=== PATIENT | male | born 1950 | race Hispanic/Latino ===

== ENCOUNTER → 2017-05-17 | Day surgery (SDC) | payer OTHER ==
[2017-05-11 10:48] LABS: BASOPHILS % 0.2 % (0.0-1.0); EOSINOPHILS # (AUTO) 0.1 (0.0-0.4); EOSINOPHILS % 0.5 % (0.0-6.0); HEMATOCRIT 42.3 % (38.2-49.6); HEMOGLOBIN 14.6 g/dL (14.0-18.0); LYMPHOCYTES # (AUTO) 2.2 (1.0-3.2); LYMPHOCYTES % 17.8 % (18.0-39.1); MEAN CORPUSCULAR HGB CONC 34.5 g/dL (31-35); MEAN CORPUSCULAR VOLUME 95.7 fL (81-99); MONOCYTES % 8.3 % (4.4-11.3); NEUTROPHILS # (AUTO) 8.8 (2.1-6.9); NEUTROPHILS % 72.8 % (38.7-80.0); PLATELET COUNT 120 x10e3/uL (140-360); RED BLOOD COUNT 4.42 x10e6/uL (4.3-5.7); RED CELL DISTRIBUTION WIDTH 13.1 % (11.7-14.4)
--- NOTE | 2017-05-11 11:14 | Diagnostic Imaging Report ---
PROCEDURE: Frontal and lateral views of the chest. COMPARISON: Chest radiograph 09/18/2014 INDICATIONS: PREOPERATIVE CHEST XRAY FOR TRIGGER FINGER SURGERY FINDINGS: Lines/tubes: None. Lungs: The lungs are well inflated and clear. There is no evidence of pneumonia or pulmonary edema. Pleura: There is no pleural effusion or pneumothorax. Heart and mediastinum: The heart and the mediastinum are normal. Bones: No acute bony abnormality. Cervical fusion hardware noted. IMPRESSION: No acute cardiopulmonary disease. Dictated by: Lewis Patel M.D. on 05/11/2017 at 11:14 Electronically approved by: Lewis Patel M.D. on 05/11/2017 at 11:14
[~2017-05-17] MED LIST: ALEVE220 M1 PO; AREDS PO; ASPIRIN81 MG PO; BUPIVACAINE HCL 0.5% 10ML MPF VIAL INJ ONE; CEFAZOLIN SOD 1 GM VIAL ONE; CIPRO500 MG PO; CLONAZEPAM0.5 MG PO; CRESTOR10 MG PO; DEXAMETHASONE SOD PHOS INJ 4 MG/ML VIAL ONE; FAMOTIDINE20 MG PO; FENTANYL CITRATE/PF 100MCG/2 ML INJ ONE; FLAGYL250 MG PO; GABAPENTIN100 MG; GLUCOSAMINE1000 MG PO; IBUPROFEN; LIDOCAINE HCL 2% LOCAL INJ 5 ML SDV VIAL INJ ONE; LOSARTAN POTASS25 MG PO; MIDAZOLAM HCL 2 MG/2 ML VIAL ONE; MUPIROCIN 2% OINT 22 GM TUBE ONE; ONDANSETRON HCL INJ 2 MG/ML VIAL ONE; PRAVASTATIN SOD20 MG PO; PROPOFOL IV EMULSION 10 MG/ML 20 ML VIAL ONE; SEVOFLURANE INHAL SOLN 250 ML PEN BTL ONE; TYLENOL WITH C1 EACH PO; VENLAFAXINE HCL75 MG PO; ZOFRAN ODT4 MG PO
--- OUTSIDE RECORDS SUMMARY | 2017-05-17 07:10 | XMS REPORT | Summary of Care ---
Author Author Veronica Forman M.A. Unknown Address [facility] Phone Unavailable Care Team Providers Care Power Truck Driver Name Role Phone MYCHAL Wilks, TYESHA Unavailable Unavailable RANDY Montes De Oca, ROSAMARIA Unavailable Unavailable Veronica Forman M.A. Unavailable Unavailable HERNAN Alvarez, YARELIS Unavailable Unavailable GROVER Alvarez, KWAME Unavailable Unavailable TOSHIA Wilks, ELBA Unavailable Unavailable JACKY MAGAÑA [place], MELVIN BATRES Unavailable Unavailable JACKY Alvarez, MELVIN Unavailable Unavailable Katherin MAGAÑA, Prosper Unavailable Unavailable RHIANNA MAGAÑA [place], EMIGDIO MÉNDEZ Unavailable Unavailable Ascencion MAGAÑA, Cornelio Unavailable Unavailable Unavailable Unavailable Functional Status Name Dates Details Functional status health issues are not documented Status: Name Dates Details Cognitive status health issues are not documented Status: Problems Name Dates Details Benign localized hyperplasia of prostate (600.20, N40.0) Status: Active Macular degeneration (362.50, H35.30) Status: Active Screening for colon cancer (V76.51, Z12.11) Status: Active CORAL on CPAP (327.23, G47.33) Status: Active Nocturnal leg cramps (327.52, G47.62) Status: Active Osteoarthritis (715.90, M19.90) Status: Active Recent exposure to tuberculosis (V01.1, Z20.1) Status: Active NSAID long-term use (V58.64, Z79.1) Status: Active Rotator cuff syndrome (726.10, M75.100) Status: Active Sciatica, unspecified laterality (724.3, M54.30) Status: Active Multiple joint pain (719.49, M25.50) Status: Active Back muscle spasm (724.8, M62.830) Status: Active Generalized anxiety disorder (300.02, F41.1) Status: Active Reflux pharyngitis (462, J02.9) Status: Active Encounter for mini-mental status examination Status: Active At low risk for fall (V49.89, Z91.81) Status: Active Depression screening (V79.0, Z13.89) Status: Active History of smoking 10-25 pack years (V15.82, Z87.891) Status: Active Ulcer mouth (528.9, K12.1) Status: Active Psychophysiological insomnia (307.42, F51.04) Status: Active Vasomotor rhinitis (477.9, J30.0) Status: Active Peripheral neuropathy (356.9, G62.9) Status: Active Ingrown nail of great toe of left foot (703.0, L60.0) Status: Active Ingrown nail of great toe of right foot (703.0, L60.0) Status: Active Chronic pain of both knees (719.46, M25.561) Status: Active Myalgia (729.1, M79.1) Status: Active Influenza vaccination declined (V64.06, Z28.21) Status: Active Trigger finger (727.03, M65.30) Status: Active Cervicalgia (723.1, M54.2) Status: Active Low back pain (724.2, M54.5) Status: Active Limb pain (729.5, M79.609) Status: Active Vitamin D insufficiency (268.9, E55.9) Status: Active Chronic bilateral low back pain with right-sided sciatica (724.2, M54.41) Status: Active Trigger ring finger of right hand (727.03, M65.341) Status: Active Essential (primary) hypertension (401.9, I10) Status: Active Mixed hyperlipidemia (272.2, E78.2) Status: Active Mitral valve prolapse (424.0, I34.1) Status: Active Dvtrcli of intest, part unsp, 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 Quantity: 90 MYCHAL P.ATYESHA Stoner * Start : 26-Jun-2015 Active Eye-Vites TABS TAKE 2 TABLETS DAILY. (TAKES AREDS 2) * Refills: 0 Active Eylea 2 MG/0.05ML SOLN * Refills: 0 Active Nebulizer Device USE DIRECTED. * Quantity: 1 Refills: 0 PADILLA N.P.ROSAMARIA * Start : 25-Feb-2015 Active Famotidine 40 MG Oral Tablet TAKE ONE (1) TABLET BY MOUTH DAILY DIRECTED. * Quantity: 90 Refills: 1 RANDY N.P.ROSAMARIA * Start : 09-Mar-2016 Active Aspirin 81 MG TABS TAKE 1 TABLET DAILY. * Refills: 0 Active Baclofen 10 MG Oral Tablet TAKE 1 TABLET 3 TIMES DAILY NEEDED FOR MUSCLE SPASMS. * Quantity: 45 Refills: 1 RANDY N.P.ROSAMARIA * Start : 14-Jul-2016 Active Melatonin 3 MG Oral Capsule TAKE 2 CAPSULE DAILY * Refills: 0 Active Diclofenac Sodium 1 % Transdermal Gel APPLY TO UPPER EXTREMITIES, 2 GM OF GEL TO AFFECTED AREA 4 TIMES DAILY. DO NOT APPLY MORE THAN 8 GM DAILY TO ANY ONE AFFECTED JOINT. * Quantity: 4 Refills: 2 YARELIS BECERRA M.D. * Start : 23-Feb-2017 Active 100 GM Tube PreserVision AREDS 2+Multi Vit Oral Capsule * Refills: 0 Active Rosuvastatin Calcium 20 MG Oral Tablet pt stated he only takes 1/2 QD for 10 days out of each month * Refills: 0 Active Ibuprofen 800 MG Oral Tablet 1/2 prn * Refills: 0 Active Hyoscyamine Sulfate 0.125 MG Sublingual Tablet Sublingual PLACE 1 TABLET UNDER THE TONGUE 3 TO 4 TIMES DAILY NEEDED. * Quantity: 12 Refills: 0 KWAME NESS M.D. * Start : 08-Apr-2017 Active Ventolin HFA 108 (90 Base) MCG/ACT Inhalation Aerosol Solution INHALE 1 TO 2 PUFFS BY MOUTH EVERY 4 TO 6 HOURS NEEDED * Quantity: 1 Refills: 0 TOSHIAELBA Lindquist * Start : 14-May-2017 Active 8 GM Inhaler Ventolin HFA 108 (90 Base) MCG/ACT Inhalation Aerosol Solution INHALE 1 TO 2 PUFFS EVERY 4 TO 6 HOURS NEEDED. * Quantity: 1 Refills: 1 ELBA LI * Start : 16-May-2017 Active 18 GM Inhaler Allergies and Adverse Reactions Name Dates Details No Known Allergies (Allergy) Status: Active Past Medical History Name Dates Details History of Abdominal bloating (787.3, R14.0) Status: Resolved History of Acute recurrent frontal sinusitis (461.1, J01.11) Status: Resolved History of Acute recurrent sinusitis (461.9, J01.91) Status: Resolved History of Acute upper back pain (724.5, M54.9) Status: Resolved History of Acute URI (465.9, J06.9) Status: Resolved History of adenomatous polyp of colon (V12.72, Z86.010) Status: Resolved History of Arthralgia of hand, left (719.44, M25.542) Status: Resolved History of Arthralgia of hand, right (719.44, M25.541) Status: Resolved History of Arthritis (V13.4) Status: Resolved History of Arthropathy of both elbows (716.82, M19.021) Status: Resolved History of Back pain, acute (724.5, M54.9) Status: Resolved History of Chronic sinus complaints (786.9, R09.89) Status: Resolved History of cough Status: Resolved History of Diverticula of colon (562.10, K57.30) Status: Resolved History of Effusion of left knee (719.06, M25.462) Status: Resolved History of Foot pain (729.5, M79.673) Status: Resolved History of headache (V13.89, Z87.898) Status: Resolved History of Internal hemorrhoids (455.0, K64.8) Status: Resolved History of Knee pain (719.46, M25.569) Status: Resolved History of Lateral epicondylitis of left elbow (726.32, M77.12) Status: Resolved History of Lateral epicondylitis of right elbow (726.32, M77.11) Status: Resolved History of Medial epicondylitis, left (726.31, M77.02) Status: Resolved History of Medial epicondylitis, right (726.31, M77.01) Status: Resolved History of Muscle spasms of both lower extremities (728.85, M62.838) Status: Resolved History of Need for pneumococcal vaccination (V03.82, Z23) Status: Resolved History of Pain in shoulder (719.41, M25.519) Status: Resolved History of Polyarthralgia (719.49, M25.50) Status: Resolved History of Post-nasal drip (784.91, R09.82) Status: Resolved History of PTSD (post-traumatic stress disorder) (309.81, F43.10) Status: Resolved History of Sinusitis (473.9, J32.9) Status: Resolved History of Ulnar neuropathy at elbow, 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, 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) Status: Resolved History of Ulnar neuropathy at elbow, right (354.2, G56.21) Status: Resolved Procedures Procedure Dates Details [QLH] CBC (INCLUDES DIFF/PLT) Date: 14-May-2017 [N] 2D Echo complete, with Doppler 17120 Date: 06-Apr-2017 History of Cervical Vertebral Fusion Completed History of Laminectomy Lumbar Completed History of Neck Surgery Completed Immunization Name Dates Details Pneumococcal polysaccharide vaccine, 23 valent on: Mar-2013 Prevnar 13 Intramuscular Suspension Lot #: [id number] on: 29-Aug-2015 Family History Name Dates Details Family history of Diabetes (250.00, E11.9) Status: Active Family history of Congestive heart failure (428.0, I50.9) Status: Active Name Dates Details Family history of Diabetes Mellitus (V18.0) Status: Active Family history of Congestive Heart Failure Status: Active Social History Name Dates Details - Status: Name Dates Details Former smoker Vital Signs Date Test Result Details [id number] BP Systolic 126 mm[Hg] Status: Comments: Location: LUE; Position: Sitting BP Diastolic 73 mm[Hg] Status: Comments: Location: LUE; Position: Sitting Height 70 in Status: Weight 210.375 lb Status: Body Mass Index Calculated 30.19 kg/m2 Status: Body Surface Area Calculated 2.13 m2 Status: Temperature 97.8 f Status: Comments: Method: Temporal Heart Rate 81 /min Status: Respiration Rate 16 /min Status: Results Date Description Value Details Results not documented Plan of Care Name Dates Details Planned Observations Planned Goals not documented Planned Encounters Appointment; TYESHA HORTA P.A. On: 27-Jun-2017 9:00 Appointment; JESE WHEELER On: 31-Mar-2018 11:00 Appointment; PROSPER AMAYA M.D. On: 31-Mar-2018 13:00 Interventions Provided Medication Changes* Ventolin HFA 108 (90 Base) MCG/ACT Inhalation Aerosol Solution - Start Instructions Name Dates Details Instructions not documented Encounters Appointment; PILI CASTRO M.D. Encounter Diagnosis: Problem not documented On: 02-Jun-2015 8:20 Appointment; PROSPER AMAYA M.D. Encounter Diagnosis: Problem not documented On: 03-Jun-2015 9:00 Appointment; PROSPER AMAYA M.D. Encounter Diagnosis: Problem not documented On: 13-Jun-2015 12:00 Appointment; ROSAMARIA PADILLA NP Encounter Diagnosis: Problem not documented On: 29-Aug-2015 10:30 Appointment; ROSAMARIA PADILLA NP Encounter Diagnosis: Problem not documented On: 14-Oct-2015 15:15 Appointment; ROSAMARIA PADILLA NP Encounter Diagnosis: Problem not documented On: 13-Nov-2015 17:00 Appointment; ROSAMARIA PADILLA NP Encounter Diagnosis: Problem not documented On: 02-Jan-2016 10:15 Appointment; KYARA ACUÑA M.D. Encounter Diagnosis: Problem not documented On: 09-Jan-2016 9:00 Appointment; Bakari Feng M.D. Encounter Diagnosis: Problem not documented On: 27-Jan-2016 13:15 Appointment; KWABENA CALHOUN NP Encounter Diagnosis: Problem not documented On: 12-Mar-2016 18:45 Appointment; KWABENA CALHOUN NP Encounter Diagnosis: Problem not documented On: 19-Mar-2016 14:00 Appointment; KYARA ACUÑA M.D. Encounter Diagnosis: Problem not documented On: 23-Mar-2016 15:00 Appointment; KWABENA CALHOUN NP Encounter Diagnosis: Problem not documented On: 31-Mar-2016 18:00 Appointment; TYESHA HORTA P.A. Encounter Diagnosis: Problem not documented On: 05-May-2016 9:15 Appointment; PROSPER AMAYA M.D. Encounter Diagnosis: Problem not documented On: 04-Jun-2016 12:40 Appointment; ROSAMARIA PADILLA NP Encounter Diagnosis: Problem not documented On: 14-Jul-2016 16:00 Appointment; ROSAMARIA PADILLA NP Encounter Diagnosis: Problem not documented On: 04-Aug-2016 16:15 Appointment; TYESHA HORTA P.AHerbie Encounter Diagnosis: Problem not documented On: 24-Aug-2016 7:45 Appointment; EMIGDIO MOCTEZUMA M.D. Encounter Diagnosis: Problem not documented On: 01-Sep-2016 14:00 Appointment; EMIGDIO MOCTEZUMA M.D. Encounter Diagnosis: Problem not documented On: 13-Sep-2016 9:00 Appointment; TYESHA HORTA P.A. Encounter Diagnosis: Problem not documented On: 04-Oct-2016 14:00 Appointment; EMIGDIO MOCTEZUMA M.D. Encounter Diagnosis: Problem not documented On: 05-Oct-2016 14:30 Appointment; TYESHA HORTA PHerbieAHerbie Encounter Diagnosis: Problem not documented On: 22-Dec-2016 8:30 Appointment; TYESHA HORTA PHerbieAHerbie Encounter Diagnosis: Problem not documented On: 12-Jan-2017 10:15 Appointment; TYESHA HORTA P.A. Encounter Diagnosis: Problem not documented On: 01-Feb-2017 9:15 Appointment; YARELIS BECERRA M.D. Encounter Diagnosis: Problem not documented On: 23-Feb-2017 13:30 Appointment; KWAME NESS M.D. Encounter Diagnosis: Problem not documented On: 25-Feb-2017 13:30 Appointment; KWABENA CALHOUN NP Encounter Diagnosis: Problem not documented On: 10-Mar-2017 19:00 Appointment; KWABENA CALHOUN NP Encounter Diagnosis: Problem not documented On: 14-Mar-2017 16:00 Appointment; KWABENA CALHOUN NP Encounter Diagnosis: Problem not documented On: 18-Mar-2017 12:00 Appointment; PROSPER AMAAY M.D. Encounter Diagnosis: Problem not documented On: 06-Apr-2017 16:20 Appointment; JESE WHEELER Encounter Diagnosis: Problem not documented On: 08-Apr-2017 10:00 Appointment; PROSPER AMAYA M.D. Encounter Diagnosis: Problem not documented On: 08-Apr-2017 11:00 Appointment; KWAME NESS M.D. Encounter Diagnosis: Problem not documented On: 08-Apr-2017 15:00 Appointment; CORNELIO PASCUAL M.D. Encounter Diagnosis: Problem not documented On: 15-Apr-2017 14:00 Appointment; ELBA POPE P.A. Encounter Diagnosis: Problem not documented On: 14-May-2017 9:30
--- OUTSIDE RECORDS SUMMARY | 2017-05-17 07:10 | XMS REPORT ---
[facility] Address Unknown Phone Unavailable Care Team Providers Care Executive Services Administrator Name Role Phone KELSEY BELTRÁN Unavailable Unavailable MER SANTANA Unavailable Unavailable Problems This patient has no known problems. Allergies, Adverse Reactions, Alerts This patient has no known allergies or adverse reactions. Medications This patient has no known medications. Results Test Description Test Time Test Comments Text Results Atomic Results Result Comments CHEST 2 VIEWS [place] [address] Patient Name: BRITTANY CHAVES MR #: [id number] : 1950 Age/Sex: 67/M Req # : [id number] Adm Physician: Ordered by: KELSEY BELTRÁN MD Report #: [id number] Location: OR Room/Bed: Procedure: [id number] DX/CHEST 2 VIEWS Exam Date: 05/11/17 Exam Time: 1035 REPORT STATUS: Signed PROCEDURE: Frontal and lateral views of the chest. COMPARISON: Chest radiograph 09/18/2014 INDICATIONS: PREOPERATIVE CHEST XRAY FOR TRIGGER FINGER SURGERY FINDINGS: Lines/ tubes: None. Lungs: The lungs are well inflated and clear. There is no evidence of pneumonia or pulmonary edema. Pleura: There is no pleural effusion or pneumothorax. Heart and mediastinum: The heart and the mediastinum are normal. Bones: No acute bony abnormality. Cervical fusion hardware noted. IMPRESSION: No acute cardiopulmonary disease. Dictated by: Lewis Dennis M.D. on 05/11/2017 at 11:14 Electronically approved by: Lewis Dennis M.D. on 05/11/2017 at 11:14 Dictated By: LEWIS DENNIS MD 13 Transcribed By: ALEXEY on 05/11/171113 COPY TO: KELSEY BELTRÁN MD CT ABDOMEN/PELVIS W [place] [address] Patient Name: BRITTANY CHAVES MR #: [id number] : 1950 Age/Sex: 66/M Req #: [id number] Adm Physician: Ordered by: MER SANTANA MD Report #: [id number] Location: ER Room/Bed: Procedure: [id number] CT/CT ABDOMEN/PELVIS W Exam Date: 02/02/17 Exam Time: 926 REPORT STATUS: Signed PROCEDURE: CT ABDOMEN AND PELVIS WITH CONTRAST TECHNIQUE: The abdomen and pelvis were scanned utilizing a multidetector helical scanner from the diaphragm to the lesser trochanter after the IV administration of 100 cc of Isovue 370 and the oral administration of Gastroview water. Coronal and sagittal multiplanar reformations were obtained. COMPARISON: None. INDICATIONS: left lower quadrant pain FINDINGS: LOWER THORAX: Normal. HEPATOBILIARY: No focal hepatic lesions. No biliary ductal dilatation. Multiple hypodensities too small to characterize are present in the liver. Single coarse calcification is present in the right lobe of the liver. SPLEEN: No splenomegaly. PANCREAS: No focal masses or ductal dilatation. ADRENALS: No adrenal nodules. KIDNEYS/URETERS: No hydronephrosis, stones, or solid mass lesions. PELVIC ORGANS/BLADDER: Unremarkable. PERITONEUM / RETROPERITONEUM: No free air or fluid. LYMPH NODES: No lymphadenopathy. VESSELS: Unremarkable. GI TRACT: Multiple diverticuli are present in the descending and sigmoid colon. Short segment of bowel wall thickening with adjacent soft tissue inflammatory change is present in the descending colon, series 2 image 49. No drainable fluid collection. The fluid in the left paracolic gutter. Normal appendix. The stomach and small bowel are normal No distention or wall thickening. BONES AND SOFT TISSUES: Postoperative changes of fusion of L4/L5. Degenerative changes of the lumbar spine. IMPRESSION: Acute diverticulitis of the descending colon, without evidence of perforation, obstruction, or abscess formation. Dictated by: Medardo Ahn M.D. on 10/2016 at 10:03 Electronically approved by: Medardo Ahn M.D. on 2016 at 10:03 Dictated By: MEDARDO AHN MD [id number] Transcribed By: ALEXEY on 02/02/17 1003 COPY TO: MER SANTANA MD
--- NOTE | 2017-05-17 14:40 | Operative Report ---
DATE OF PROCEDURE: May 17, 2017 PREOPERATIVE DIAGNOSIS: Stenosing tenosynovitis of right ring finger. POSTOPERATIVE DIAGNOSIS: Stenosing tenosynovitis of right ring finger. OPERATION PERFORMED: Tenovaginotomy of right ring finger. ANESTHESIA: General. HISTORY: The patient is a 67-year-old male who presents with stenosing tenosynovitis of the right ring finger that is recalcitrant to conservative treatment. The risks, benefits, and alternatives of treatment were discussed with the patient and he/she is prepared to undergo the procedure as outlined. DESCRIPTION OF PROCEDURE: The patient was brought to the operating theater. After the induction of adequate general/regional anesthesia, the patient was prepped and draped in a supine position. A time out was performed by the entire operating room team. An oblique incision was marked out over the A1 jessica of the right ring finger. The upper extremity was exsanguinated, and a tourniquet was inflated to a pressure of 250 mmHg. The incision was made through the skin and subcutaneous tissues. All venous tributaries were controlled with bipolar cautery. The incision was deepened through the palmar tissues. The neurovascular bundles on the radial and ulnar sides of the flexor tendon sheath were identified and retracted away from the flexor tendon sheath and preserved. The A1 jessica of the affected finger was identified and incised longitudinally, taking care to protect and preserve the flexor tendons within the sheath. After the complete length of the jessica had been transected, the tendons were placed in a range of motion. There was noted to be good motion without any locking. The wound was then copiously irrigated with bacteriostatic saline and closed with 5-0 nylon in an interrupted horizontal mattress fashion. A Marcaine field block was performed at the operative site. The tourniquet was deflated. All the fingers pinked up nicely. A sterile bulky conforming bandage was applied to the hand, and the patient was returned to the recovery room in satisfactory condition and was discharged with a postoperative instruction sheet as well as a followup appointment. Job#: [id number] VAS
== END | disposition home or self-care (01) ==
LOC: OR 07:08
PROVIDERS: ATTEND Plastic Surgery
DX: M65.341 Trigger finger, right ring finger (principal); I10 Essential (primary) hypertension; G47.33 Obstructive sleep apnea (adult) (pediatric); K21.9 Gastro-esophageal reflux disease without esophagitis; F32.9 Major depressive disorder, single episode, unspecified; Z01.810 Encounter for preprocedural cardiovascular examination; Z01.812 Encounter for preprocedural laboratory examination; Z01.818 Encounter for other preprocedural examination; Z79.82 Long term (current) use of aspirin
CPT/HCPCS: 26055; 36415; 71046; 85025; 93005; J0690; J1100; J2001; J2250; J2405

== ENCOUNTER 2017-11-08 12:08 | Emergency (ER) | payer OTHER ==
[~2017-11-08] VITALS: Ht 180.3 cm; Wt 95.7 kg
[~2017-11-08 12:08] MED LIST changes: -BUPIVACAINE HCL 0.5% 10ML MPF VIAL INJ ONE; -CEFAZOLIN SOD 1 GM VIAL ONE; -DEXAMETHASONE SOD PHOS INJ 4 MG/ML VIAL ONE; -FENTANYL CITRATE/PF 100MCG/2 ML INJ ONE; -LIDOCAINE HCL 2% LOCAL INJ 5 ML SDV VIAL INJ ONE; -MIDAZOLAM HCL 2 MG/2 ML VIAL ONE; -MUPIROCIN 2% OINT 22 GM TUBE ONE; -ONDANSETRON HCL INJ 2 MG/ML VIAL ONE; -PROPOFOL IV EMULSION 10 MG/ML 20 ML VIAL ONE; -SEVOFLURANE INHAL SOLN 250 ML PEN BTL ONE
[2017-11-08] MEDS ORDERED: SODIUM CHLORIDE 0.9% 1000ML 1,000 ML IV STA (12:39)
[2017-11-08 13:10] LABS: BASOPHILS % 0.5 % (0.0-1.0); EOSINOPHILS # (AUTO) 0.1 (0.0-0.4); HEMATOCRIT 41.8 % (38.2-49.6); HEMOGLOBIN 14.6 g/dL (14.0-18.0); LYMPHOCYTES # (AUTO) 1.4 (1.0-3.2); LYMPHOCYTES % 25.9 % (18.0-39.1); MEAN CORPUSCULAR HEMOGLOBIN 33.3 pg (28-32); MEAN CORPUSCULAR HGB CONC 34.9 g/dL (31-35); MEAN CORPUSCULAR VOLUME 95.2 fL (81-99); MONOCYTES # (AUTO) 0.4 (0.2-0.8); MONOCYTES % 7.7 % (4.4-11.3); NEUTROPHILS # (AUTO) 3.5 (2.1-6.9); NEUTROPHILS % 63.5 % (38.7-80.0); PLATELET COUNT 113 x10e3/uL (140-360); RED BLOOD COUNT 4.39 x10e6/uL (4.3-5.7); RED CELL DISTRIBUTION WIDTH 13.4 % (11.7-14.4)
[2017-11-08 13:18] LABS: BILIRUBIN,URINE NEGATIVE (NEGATIVE); CLARITY,URINE CLEAR (CLEAR); COLOR,URINE YELLOW (YELLOW); KETONES,URINE NEGATIVE (NEGATIVE); LEUKOCYTE ESTERASE ,URINE NEGATIVE (NEGATIVE); NITRITE,URINE NEGATIVE (NEGATIVE); PROTEIN,URINE DIPSTICK NEGATIVE (NEGATIVE); URINE UROBILINOGEN 0.2 mg/dL (0.2 - 1)
[2017-11-08 13:25] LABS: ALANINE AMINOTRANSFERASE 21 IU/L (0-55); ALBUMIN/GLOBULIN RATIO 1.3 (0.8-2.0); ALKALINE PHOSPHATASE 81 IU/L (40-150); ANION GAP 12.2 mmol/L (8-16); BLOOD UREA NITROGEN 15 mg/dL (7-26); BUN/CREATININE RATIO 15 (6-25); CALCIUM 9.2 mg/dL (8.4-10.2); CARBON DIOXIDE 26 mmol/L (22-29); CHLORIDE 104 mmol/L (98-107); CREATININE, SERUM 1.02 mg/dL (0.72-1.25); EST GLOMERULAR FILTRATION RATE > 60 ML/MIN (60-); GLUCOSE 93 mg/dL (74-118); POTASSIUM 4.2 mmol/L (3.5-5.1); SODIUM 138 mmol/L (136-145)
--- NOTE | 2017-11-08 13:40 | Diagnostic Imaging Report ---
PROCEDURE: CT ABDOMEN AND PELVIS WITHOUT CONTRAST TECHNIQUE: The abdomen and pelvis were scanned utilizing a multidetector helical scanner from the diaphragm to the lesser trochanter without oral or IV contrast per protocol request. Coronal and sagittal multiplanar reformations were obtained. COMPARISON: CT of the abdomen/pelvis with contrast 02/02/17. INDICATIONS: FLANK PAIN FINDINGS: ABSENCE OF INTRAVENOUS CONTRAST DECREASES SENSITIVITY FOR DETECTION OF FOCAL LESIONS AND VASCULAR PATHOLOGY. LOWER THORAX: Coronary atherosclerosis. HEPATOBILIARY: No focal hepatic lesions. No biliary ductal dilatation. Subcentimeter hypo densities are too small to characterize, but may represent cysts. Coarse calcification is present in the right hepatic lobe. SPLEEN: No splenomegaly. PANCREAS: No focal masses or ductal dilatation. ADRENALS: No adrenal nodules. KIDNEYS/URETERS: No hydronephrosis, stones, or solid mass lesions. PELVIC ORGANS/BLADDER: Unremarkable. PERITONEUM / RETROPERITONEUM: No free air or fluid. LYMPH NODES: No lymphadenopathy. VESSELS: Atherosclerotic calcifications of the abdominal aorta and branch vessels. GI TRACT: No distention or wall thickening. Interval resolution of previously seen site of descending colonic diverticulitis. Diverticulosis without CT evidence of diverticulitis. Normal appendix. BONES AND SOFT TISSUES: No acute findings. Post operative changes status post L4-L5 fusion. Degenerative changes of the lumbar spine. Post operative changes present in the right iliac bone adjacent to the SI joint. IMPRESSION: No acute findings in the abdomen or pelvis. No evidence of renal/urinary stone. Resolution of previously seen descending colonic diverticulitis. Dictated by: LION HARRISON M.D. on 11/08/2017 at 13:47 Electronically approved by: LION HARRISON M.D. on 11/08/2017 at 13:47
[2017-11-08 13:46] LABS: BACTERIA,URINE RARE /HPF; EPITHELIAL CELLS,URINE RARE /LPF; WBC,URINE (MAN) 0-5 /HPF (0-5)
[2017-11-08 15:00] VITALS: BP 159/88
== END 2017-11-08 15:14 | disposition home or self-care (01) ==
LOC: ER 12:08
DX: M54.5 Low back pain (principal); M54.2 Cervicalgia; S39.012A Strain of muscle, fascia and tendon of lower back, initial encounter; Z98.1 Arthrodesis status
CPT/HCPCS: 36415; 74176; 80053; 81001; 85025; 99283; J7030

== ENCOUNTER → 2018-06-13 | Day surgery (SDC) | payer MEDICARE ==
[2018-06-06 11:30] LABS: BASOPHILS % 0.5 % (0.0-1.0); EOSINOPHILS # (AUTO) 0.2 (0.0-0.4); HEMATOCRIT 40.3 % (38.2-49.6); HEMOGLOBIN 13.8 g/dL (14.0-18.0); LYMPHOCYTES # (AUTO) 1.4 (1.0-3.2); LYMPHOCYTES % 24.5 % (18.0-39.1); MEAN CORPUSCULAR HEMOGLOBIN 33.3 pg (28-32); MEAN CORPUSCULAR HGB CONC 34.2 g/dL (31-35); MEAN CORPUSCULAR VOLUME 97.1 fL (81-99); MONOCYTES # (AUTO) 0.4 (0.2-0.8); MONOCYTES % 7.8 % (4.4-11.3); NEUTROPHILS # (AUTO) 3.5 (2.1-6.9); NEUTROPHILS % 62.8 % (38.7-80.0); PLATELET COUNT 130 x10e3/uL (140-360); RED BLOOD COUNT 4.15 x10e6/uL (4.3-5.7); RED CELL DISTRIBUTION WIDTH 13.3 % (11.7-14.4)
[2018-06-06 12:24] LABS: PLATELET ESTIMATE SLIGHTLY DECREASED; PLATELET MORPHOLOGY COMMENT NORMAL; RBC MORPHOLOGY COMMENT NORMAL
--- NOTE | 2018-06-06 12:24 | Diagnostic Imaging Report ---
EXAMINATION: CHEST 2 VIEWS INDICATION: Pre-op. COMPARISON: None FINDINGS: TUBES and LINES: None. LUNGS: Lungs are well inflated. Lungs are clear. There is no evidence of pneumonia or pulmonary edema. PLEURA: No pleural effusion or pneumothorax. HEART AND MEDIASTINUM: The cardiomediastinal silhouette is unremarkable. BONES AND SOFT TISSUES: Partially seen cervical spine fixation hardware. No acute osseous abnormality. UPPER ABDOMEN: No free air under the diaphragm. IMPRESSION: No acute radiographic abnormality. Signed by: Dr. Shad Jarquin MD on 06/06/2018 12:21 PM
[~2018-06-13] MED LIST changes: +BUPIVACAINE HCL 0.5% INJ 30 ML VIAL INJ ONE; +CEFAZOLIN SOD 1 GM/NS 50ML 50 ML IV ONE; +DEXAMETHASONE SOD PHOS INJ 4 MG/ML VIAL ONE; +FENTANYL CITRATE/PF 100MCG/2 ML INJ ONE; +LIDOCAINE HCL 2% LOCAL INJ 5 ML SDV VIAL INJ ONE; +MELATONIN3 MG PO; +MELOXICAM7.5 MG PO; +MIDAZOLAM HCL 2 MG/2 ML VIAL ONE; +MUPIROCIN 2% OINT 22 GM TUBE ONE; +OMEPRAZOLE40 MG PO; +ONDANSETRON HCL INJ 2MG/ML 2ML 2 MG/ML VIAL ONE; +PROPOFOL IV EMULSION 10 MG/ML 20 ML VIAL ONE; +SEVOFLURANE INHAL SOLN 250 ML PEN BTL ONE; +[UNRECOGNIZED DRUG - REMARK] PO
--- OUTSIDE RECORDS SUMMARY | 2018-06-13 05:38 | XMS REPORT | Continuity of Care Document ---
Author Author [facility] Interface Address Unknown Phone Unavailable Problems Problem Status Onset Date Classification Date Reported Comments Source SLEEP APNEA Active 02/25/2015 [facility] 724.02 - "SPIN STEN,LUMBR" Active 11/25/2014 [facility] [place] 401.0 - MALIGNANT HYPER Active 05/21/2013 [facility] [place] Medications Medication Details Route Status Patient Instructions Ordering Provider Order Date Source Allergies, Adverse Reactions, Alerts Substance Category Reaction Severity Reaction type Status Date Reported Comments Source Immunizations Immunization Date Given Site Status Last Updated Comments Source Results Order Name Results Value Reference Range Date Interpretation Comments Source Chest 2 views DX Chest 2 views DX EXAM: XR CHEST TWO VIEWS DATE: 02/25/2015 COMPARISON EXAMS: 05/22/2013 CLINICAL INDICATION: Acute bronchitis. TECHNIQUE: PA and Lateral views DISCUSSION: PA and lateral chest x-rays reveal a new linear focus of subsegmental atelectasis or scarring in the lingular segment left upper lobe. No consolidation is seen. No pleural abnormalities are noted. The cardiomediastinal silhouette, hilar, and pulmonary vascular structures as well as the regional chest wall structures are normal in appearance. Tracheal and mainstem bronchial shadows are normal in appearance. Surgical plate is seen in the inferior cervical spine, stable from the prior exam. IMPRESSION: There is a new small focus of linear subsegmental atelectasis or scarring in the lingular segment left upper lobe. No consolidation is seen. 02/25/2015 - - Read by: Lee Mendez MD Dictated Date/time: 02/25/15 15:59 Electronically Signed by: Lee Mendez MD 02/25/15 16:01 FINAL REPORT [facility] Spine lumbar flex/ext 2 view DX Spine lumbar flex/ext 2 view DX EXAMINATION: Lumbar spine series HISTORY: Lumbar spondylosis FINDINGS: Frontal, coned lateral, lateral neutral, lateral flexion, and lateral extension views of the lumbar spine are performed and compared to 08/07/2014. Postsurgical changes of combined instrumented anterior and posterior spinal fusion at L4-L5 transfixed with paired vertical rods, multiple pedicle screws, and interbody spacer are redemonstrated. There is hypolordosis of the lumbar spine without listhesis. The vertebral body heights are normal without compression fracture. There is mild L3-L4 and L5-S1 degenerative disc disease. Flexion and extension views demonstrate hypomobility of the lumbar spine without definite pathologic motion at the instrumented levels. Aortic atherosclerotic calcifications are noted. IMPRESSION: 1. Unchanged combined instrumented anterior and posterior spinal fusion, L4-L5. 2. Hypomobility of the lumbar spine without definite pathologic motion at the instrument at levels on flexion-extension. 3. Mild L3-L4 and L5-S1 degenerative disc disease. 12/09/2014 - - Read by: Margarito Solorzano MD Dictated Date/time: 12/10/14 09:08 Electronically Signed by: Margarito Solorzano MD 12/10/14 09:38 FINAL REPORT [facility] [place] Spine lumbar wo contrast MRI Spine lumbar wo contrast MRI EXAM: MRI LUMBAR SPINE WITHOUT CONTRAST DATE: Dec 09, 2014 11:12:29 AM . CLINICAL INDICATION: low-back pain, spinal stenosis. TECHNIQUE: Multiplanar, multisequence MRI lumbar spine without IV contrast COMPARISON: Unavailable FINDINGS: The lumbar vertebral bodies have normal height, shape, and alignment. There is no worrisome marrow signal abnormality. The conus terminates normally at L1-L2. The paravertebral soft tissues are within normal limits given postoperative status. There is signal abnormality in the right iliac wing, likely related to bone harvesting. Disc spaces, spinal canal, and neural foramina: T12-L1. Intervertebral disc height and signal are maintained. There is a 5 mm left extraforaminal disc protrusion without mass effect. Posterior elements are normal. There is no stenosis. L1-L2. Intervertebral disc height and signal are maintained. There is mild bilateral facet hypertrophy. There is no stenosis. L2-L3. [<Intervertebral disc height and signal are maintained. There is bilateral facet hypertrophy with ligamentous thickening. There is mild right neural foraminal narrowing without nerve root mass effect. L3-L4. Mild loss of intervertebral disc height and signal with small diffuse disc bulge appear bilateral facet hypertrophy. Small central radial annular fissure. There is mild left and moderate right neural foraminal narrowing with the disc and facet osteophytes contacting the right L3 nerve root without compression. L4-L5. Partial discectomy with posterior fusion. Remaining portion of the disc dehydrated. Facets are enlarged. Central canal and lateral recesses are patent. There is moderate left neural foraminal narrowing and moderate to severe right neural foraminal narrowing with mass effect on the right L4 nerve root. L5-S1. [<Intervertebral disc is dehydrated. There is a linear radial annular fissure. Posterior elements are mildly enlarged. The neural foramina are moderately narrowed bilaterally with disc and facet osteophytes contacting the L5 nerve roots. IMPRESSION: 1. L4-L5 discectomy posterior fusion without evidence of hardware complication. 2. Bilateral L4-L5 neural foraminal stenosis asymmetric to the right with mass effect on the right L4 nerve root. 3. Bilateral L5-S1 neural foraminal stenosis with facet osteophyte contacting each L5 nerve root 4. Radial annular fissures 5. Please see additional comments above 12/09/2014 - - Read by: Ángel Lee MD Dictated Date/time: 12/09/14 14:16 Electronically Signed by: Ángel Lee MD 12/09/14 16:32 FINAL REPORT [facility] [place] Spine cervical series DX Spine cervical series DX EXAM: X-RAY CERVICAL SPINE 4 VIEWS DATE: 09/12/2014 COMPARISON EXAMS: None. CLINICAL INDICATION: Intervertebral disc disorder. History of cervical spine fusion surgery. DATA: None TECHNIQUE: AP, lateral, and lateral flexion and extension views DISCUSSION: The patient is undergone ACDF procedure at C6-C7 with no evidence of hardware failure, hardware alignment, hardware loosening, or other complication. There is partial osseous fusion of the C6-C7 disc space. Remainder of intervertebral disc space heights are well-maintained. Mild anterior spondylosis is present at C5-C6. Vertebral body heights are well-maintained. Facet joint hypertrophic changes are present in the cervical spine, most pronounced on the right at C2-C3 through C5-C6 with associated hypertrophy. No osseous spinal stenosis is seen. On lateral flexion and extension views, no listhesis/displacement is seen within the cervical spine. No paraspinal soft tissue pathology is seen. IMPRESSION: 1. Status post ACDF procedure at C6-C7 with partial osseous fusion of the disc space and with no evidence of hardware failure, malalignment, or other complication. 2. No abnormal motion of the cervical spine with flexion and extension. 3. Mild anterior spondylosis at C5-C6. 4. Facet joint osteoarthritic changes, right-sided greater than left, with associated facet joint hypertrophy, at C2-C3 through C5-C6. 09/12/2014 - - Read by: Lee Mendez MD Dictated Date/time: 09/12/14 10:33 Electronically Signed by: Lee Mendez MD 09/12/14 10:38 FINAL REPORT [facility] Knee 3 views DX Knee 3 views DX EXAM: LEFT KNEE 3 VIEWS DATE: August 16, 2014 10:45:00 AM INDICATION: 719.48 Pain in Joint Involving Other Specified Sites COMPARISON: None available. TECHNIQUE: AP, lateral and sunrise radiographs of the left knee FINDINGS: No fracture, dislocation or other acute bony abnormality is identified. Knee joint spaces are overall maintained. There is no knee joint effusion. Mild arterial calcification is present. IMPRESSION: No bony abnormality identified. 08/16/2014 - - Read by: Thomas Wells MD Dictated Date/time: 08/16/14 16:54 Electronically Signed by: Thomas Wells MD 08/16/14 16:55 FINAL REPORT [facility] Shoulder 2+ Views Bilateral DX Shoulder 2+ Views Bilateral DX EXAM: RIGHT SHOULDER 3 VIEWS EXAM: LEFT SHOULDER 3 VIEWS DATE: August 16, 2014 10:45:00 AM INDICATION: 719.41 Pain in Joint Involving Shoulder Region. COMPARISON: None available TECHNIQUE: AP views in internal and external rotation and scapula-Y view of the right and left shoulder FINDINGS: No fracture, dislocation or other acute bony abnormality is identified. Small AC joint osteophytes are present. There are small bilateral greater tuberosity enthesophytes. Anterior spinal fusion hardware at C7-T1 partially imaged. No soft tissue abnormality is identified. IMPRESSION: Mild bilateral degenerative changes of the shoulders. 08/16/2014 - - Read by: Thomas Wells MD Dictated Date/time: 08/16/14 11:14 Electronically Signed by: Thomas Wells MD 08/16/14 11:15 FINAL REPORT [facility] Spine Lumbar Bending Only 2/3 Views DX Spine Lumbar Bending Only 2/3 Views DX LUMBAR SPINE SERIES CLINICAL HISTORY: Low back pain. COMPARISON IMAGING: None. FINDINGS: Five views of the lumbar spine were obtained. The patient is status post L4-L5 PLIF. No obvious complication is identified. Small dorsolateral osteophytes are identified at L2-L3 and L3-L4. Facets appear hypertrophic throughout, likely narrowing multiple neural foramina. Vertebral body heights and alignment are maintained with flexion, extension, and neutral positioning. No fracture or subluxation is seen. Soft tissues are grossly unremarkable. IMPRESSION: Surgical and degenerative changes without abnormal alignment. 08/07/2014 - - Read by: Gomez Victor MD Dictated Date/time: 08/07/14 11:34 Electronically Signed by: Gomez Victor MD 08/07/14 11:35 FINAL REPORT [facility] Chest 2 views Chest 2 views CHEST RADIOGRAPHY CLINICAL HISTORY: 401.0 malignant essential hypertension COMPARISON IMAGING: None. FINDINGS: Two views of the chest were acquired and submitted for evaluation. No pleural fluid is identified. The contour of the cardiac silhouette is within normal limits. There is no significant pulmonary consolidation or nodularity. Bones are unremarkable. Surgical plates noted over the lower cervical spine. IMPRESSION: No significant abnormality. 05/22/2013 - - Read by: Sena Burdick Dictated Date/time: 05/22/13 09:56 Electronically Signed by: Sena Burdick DO 05/22/13 09:57 FINAL REPORT [facility] Vital Signs Vital Sign Value Date Comments Source Encounters Location Location Details Encounter Type Encounter Number Reason For Visit Attending Provider ADM Date DC Date Status Source OD [id number] 401.0 - MALIGNANT HYPER BASIL ANGEL 05/22/2013 Active [facility] [place] [facility] [place] [facility] [id number] _[id number] Basil Angel 05/22/2013 05/23/2013 [facility] [place] [facility] [place] [facility] [id number] John Cervantes 08/07/2014 08/08/2014 [facility] [place] [facility] [place] [facility] [id number] Han Harrison 08/16/2014 08/17/2014 [facility] [place] [facility] [id number] John Cervantes 09/12/2014 09/13/2014 [facility] [place] [facility] [id number] John Cervantes 12/09/2014 12/10/2014 [facility] [place] [facility] [id number] Han Harrison 02/25/2015 [facility] Out[facility] [id number] Kalie Alonzo 03/13/2015 03/13/2015 [facility] Procedures Procedure Code Date Perfomer Comments Source
--- OUTSIDE RECORDS SUMMARY | 2018-06-13 05:38 | XMS REPORT | Summary of Care ---
Author Author Krishna Scott Unknown Address Unknown Phone Unavailable Care Team Providers Care Policy Services Representative Name Role Phone RANDY Montes De Oca, ROSAMARIA Unavailable Unavailable Veronica Forman M.A. Unavailable Unavailable TOSHIA Wilks, ELBA Unavailable Unavailable JACKY MAGAÑA GA, MELVIN BATRES Unavailable Unavailable JACKY Alvarez, MELVIN Unavailable Unavailable Katherin MAGAÑA, Prosper Unavailable Unavailable RHIANNA MAGAÑA GA, EMIGDIO MÉNDEZ Unavailable Unavailable Ascencion MAGAÑA, Cornelio Unavailable Unavailable Unavailable Unavailable Functional Status Name Dates Details Functional status health issues are not documented Status: Name Dates Details Cognitive status health issues are not documented Status: Problems Name Dates Details Macular degeneration (362.50, H35.30) Status: Active Screening for colon cancer (V76.51, Z12.11) Status: Active Recent exposure to tuberculosis (V01.1, Z20.1) Status: Active NSAID long-term use (V58.64, Z79.1) Status: Active Rotator cuff syndrome (726.10, M75.100) Status: Active Encounter for mini-mental status examination Status: Active At low risk for fall (V49.89, Z91.81) Status: Active Depression screening (V79.0, Z13.89) Status: Active History of smoking 10-25 pack years (V15.82, Z87.891) Status: Active Influenza vaccination declined (V64.06, Z28.21) Status: Active Cervicalgia (723.1, M54.2) Status: Active Vitamin D insufficiency (268.9, E55.9) Status: Active Trigger ring finger of right hand (727.03, M65.341) Status: Active Constipation, chronic (564.00, K59.09) Status: Active Allergic rhinitis due to pollen (477.0, J30.1) Status: Active Nevus, non-neoplastic (448.1, I78.1) Status: Active Osteoarthritis (715.90, M19.90) Status: Active Trigger finger of left hand (727.03, M65.30) Status: Active Refusal of statin medication by patient (V64.2, Z53.29) Status: Active Screening for AAA (abdominal aortic aneurysm) (V81.2, Z13.6) Status: Active Back strain, initial encounter (847.9, S39.012A) Status: Active Acute low back pain (724.2, M54.5) Status: Active Essential (primary) hypertension (401.9, I10) Status: Active Mixed hyperlipidemia (272.2, E78.2) Status: Active Diverticulosis (562.10, K57.90) Status: Active Chronic pain of both knees (719.46, M25.561) Status: Active Chronic bilateral low back pain with right-sided sciatica (724.2, M54.41) Status: Active Benign localized hyperplasia of prostate (600.20, N40.0) Status: Active Multiple joint pain (719.49, M25.50) Status: Active CORAL on CPAP (327.23, G47.33) Status: Active Reflux pharyngitis (462, J02.9) Status: Active Thrombocytopenia (287.5, D69.6) Status: Active Generalized anxiety disorder (300.02, F41.1) Status: Active Mitral valve prolapse (424.0, I34.1) Status: Active Psychophysiological insomnia (307.42, F51.04) Status: Active Peripheral neuropathy (356.9, G62.9) Status: Active Vasomotor rhinitis (477.9, J30.0) Status: Active Medications Name Dates Details Losartan Potassium 25 MG Oral Tablet Take one (1) tablet(s) by mouth daily. Quantity: 1 PADILLA N.P., ROSAMARIA * Start : 26-Jun-2015 Active 90 Tablet Bottle Eye-Vites TABS TAKE 2 TABLETS DAILY. (TAKES AREDS 2) * Refills: 0 Active Eylea 2 MG/0.05ML SOLN * Refills: 0 Active Nebulizer Device USE DIRECTED. * Quantity: 1 Refills: 0 PADILLA N.P., ROSAMARIA * Start : 25-Feb-2015 Active Famotidine 40 MG Oral Tablet TAKE ONE (1) TABLET BY MOUTH DAILY DIRECTED. * Quantity: 90 Refills: 1 PADILLA N.P., ROSAMARIA * Start : 09-Mar-2016 Active Aspirin 81 MG TABS TAKE 1 TABLET DAILY. * Refills: 0 Active Melatonin 3 MG Oral Capsule TAKE 2 CAPSULE DAILY * Refills: 0 Active PreserVision AREDS 2+Multi Vit Oral Capsule * Refills: 0 Active Boncarbo 3-6-9 CAPS * Refills: 0 Active Vitamin D3 2000 UNIT Oral Capsule * Refills: 0 Active Garlic CAPS * Refills: 0 Active Cod Liver Oil Oral Capsule 1-2 caps as directed once or twice a day * Quantity: 1 Refills: 0 PADILLA N.P., ROSAMARIA * Start : 13-Sep-2017 Active TraMADol HCl - 50 MG Oral Tablet 1-2 PO Q6 hrs PRN pain * Quantity: 60 Refills: 2 RANDY N.P., ROSAMARIA * Start : 13-Sep-2017 Active Tylenol 8 Hour Arthritis Pain 650 MG Oral Tablet Extended Release * Refills: 0 PADILLA N.P., ROSAMARIA * Start : 13-Sep-2017 Active Co-Enzyme Q10 100 MG Oral Capsule TAKE 1 CAPSULE TWICE DAILY. * Refills: 0 PADILLA N.P., ROSAMARIA * Start : 13-Sep-2017 Active L-Carnitine 500 MG Oral Capsule TAKE DIRECTED TWICE A DAY FOR MUSCLE SUPPORT * Refills: 0 PADILLA N.P., ROSAMARIA * Start : 13-Sep-2017 Active Ibuprofen 800 MG Oral Tablet 1/2 tablet PO TID with food PRN pain * Quantity: 30 Refills: 0 ELBA LI * Start : 26-Oct-2017 Active Allergies and Adverse Reactions Name Dates Details No Known Allergies (Allergy) Status: Active Past Medical History Name Dates Details History of Abdominal bloating (787.3, R14.0) Status: Resolved History of abdominal pain (V13.89, Z87.898) Status: Resolved History of Acute recurrent frontal sinusitis (461.1, J01.11) Status: Resolved History of Acute recurrent sinusitis (461.9, J01.91) Status: Resolved History of Acute upper back pain (724.5, M54.9) Status: Resolved History of Acute URI (465.9, J06.9) Status: Resolved History of adenomatous polyp of colon (V12.72, Z86.010) Status: Resolved History of Allergic bronchitis (493.90, J45.909) Status: Resolved History of Arthralgia of hand, left (719.44, M25.542) Status: Resolved History of Arthralgia of hand, right (719.44, M25.541) Status: Resolved History of Arthritis (V13.4) Status: Resolved History of Arthropathy of both elbows (716.82, M19.021) Status: Resolved History of Back muscle spasm (724.8, M62.830) Status: Resolved History of Back pain, acute (724.5, M54.9) Status: Resolved History of Chronic sinus complaints (786.9, R09.89) Status: Resolved History of cough Status: Resolved History of Diverticula of colon (562.10, K57.30) Status: Resolved History of Effusion of left knee (719.06, M25.462) Status: Resolved History of Foot pain (729.5, M79.673) Status: Resolved History of headache (V13.89, Z87.898) Status: Resolved History of Ingrown nail of great toe of left foot (703.0, L60.0) Status: Resolved History of Ingrown nail of great toe of right foot (703.0, L60.0) Status: Resolved History of Internal hemorrhoids (455.0, K64.8) Status: Resolved History of Knee pain (719.46, M25.569) Status: Resolved History of Lateral epicondylitis of left elbow (726.32, M77.12) Status: Resolved History of Lateral epicondylitis of right elbow (726.32, M77.11) Status: Resolved History of Limb pain (729.5, M79.609) Status: Resolved History of low back pain (V13.59, Z87.39) Status: Resolved History of Medial epicondylitis, left (726.31, M77.02) Status: Resolved History of Medial epicondylitis, right (726.31, M77.01) Status: Resolved History of muscle pain (V13.59, Z87.39) Status: Resolved History of Muscle spasms of both lower extremities (728.85, M62.838) Status: Resolved History of Need for pneumococcal vaccination (V03.82, Z23) Status: Resolved History of Nocturnal leg cramps (327.52, G47.62) Status: Resolved History of Pain in shoulder (719.41, M25.519) Status: Resolved History of Polyarthralgia (719.49, M25.50) Status: Resolved History of Post-nasal drip (784.91, R09.82) Status: Resolved History of PTSD (post-traumatic stress disorder) (309.81, F43.10) Status: Resolved History of sciatica (V12.49, Z86.69) Status: Resolved History of Sinusitis (473.9, J32.9) Status: Resolved History of trigger finger (V13.59, Z87.39) Status: Resolved History of Ulcer mouth (528.9, K12.1) Status: Resolved History of Ulnar neuropathy at elbow, left (354.2, G56.22) Status: Resolved History of Ulnar neuropathy at elbow, right (354.2, G56.21) Status: Resolved Procedures Procedure Dates Details History of Cervical Vertebral Fusion Completed History of Laminectomy Lumbar Completed History of Neck Surgery Completed Immunization Name Dates Details Pneumococcal polysaccharide vaccine, 23 valent on: Mar-2013 Prevnar 13 Intramuscular Suspension Lot #: [id number] on: 29-Aug-2015 Family History Name Dates Details Family history of Diabetes (250.00, E11.9) Status: Active Family history of Congestive heart failure (428.0, I50.9) Status: Active Name Dates Details Family history of Diabetes Mellitus (V18.0) Status: Active Family history of Congestive Heart Failure Status: Active Social History Name Dates Details - Status: Name Dates Details Former smoker Vital Signs Date Test Result Details :18 BP Systolic 142 mm[Hg] Status: BP Diastolic 73 mm[Hg] Status: Heart Rate 76 /min Status: :17 BP Systolic 155 mm[Hg] Status: Comments: Location: LUE; Position: Sitting BP Diastolic 68 mm[Hg] Status: Comments: Location: LUE; Position: Sitting Heart Rate 76 /min Status: Height 71 in Status: Weight 211.1875 lb Status: Body Mass Index Calculated 29.45 kg/m2 Status: Body Surface Area Calculated 2.16 m2 Status: Temperature 98.7 f Status: Comments: Method: Temporal Respiration Rate 16 /min Status: Results Date Description Value Details [id number] XRAY Spine lumbar series [id number] Spine lumbar series SEE NOTES Comments: EXAM: XR LUMBAR SPINE 5 VIEWSDATE: 10/18/2017 3:34 PM CDTINDICATION: Acute low back pain.ADDITIONAL INFORMATION: Per technologist information sheets: Constant lowerback pain for the past 2 1/2 weeks.COMPARISON: Lumbar spine CT 08/18/2016TECHNIQUE: AP, lateral, coned lateral, LPO and RPO radiographs of the lumbarspineFINDINGS: Unchanged appearance of the posterior spinal fixation hardwarespanning L4-5, which is intact. Vertebral body heights and remaining discheights are preserved. There is no spondylolysis or spondylolisthesis. Mildmultilevel endplate osteophyte formation.Mild aortic atherosclerosis.IMPRESSION: 1. No acute abnormality.2. Unchanged spinal fixation hardware spanning L4-5.--This report was dictated by a Senior Data Mining Analyst/Fellow. I have personallyreviewed the images aswell as the Resident's interpretation and agree with the findings.Read by: Chapito Driscoll (Fellow) Resident: Chapito Driscoll(Fellow)Dictated Date/time: 10/18/17 16:37Electronically Signed by: Es Oscar MD 10/18/1816:57FINAL REPORT Plan of Care Name Dates Details Planned Observations Planned Goals not documented Planned Encounters Appointment; JESE WHEELER On: 31-Mar-2018 11:00 Appointment; PROSPER AMAYA M.D. On: 31-Mar-2018 13:00 Interventions Provided Follow-ups/Referrals* Neurosurgery Referral; To Be Done: 09 Nov 2017 Instructions Name Dates Details Instructions not documented Encounters Appointment; ROSAMARIA PADILLA NP Encounter Diagnosis: Problem [...] documented On: 31-Mar-2016 18:00 Appointment; TYESHA HORTA PHerbieAHerbie Encounter Diagnosis: Problem not documented On: 05-May-2016 9:15 Appointment; PROSPER AMAYA M.D. Encounter Diagnosis: Problem not documented On: 04-Jun-2016 12:40 Appointment; ROSAMARIA PADILLA NP Encounter Diagnosis: Problem not documented On: 14-Jul-2016 16:00 Appointment; ROSAMARIA PADILLA NP Encounter Diagnosis: Problem not documented On: 04-Aug-2016 16:15 Appointment; TYESHA HORTA PHerbieAHerbie Encounter Diagnosis: Problem not documented On: 24-Aug-2016 7:45 Appointment; EMIGDIO MOCTEZUMA M.D. Encounter Diagnosis: Problem not documented On: 01-Sep-2016 14:00 Appointment; EMIGDIO MOCTEZUMA M.D. Encounter Diagnosis: Problem not documented On: 13-Sep-2016 9:00 Appointment; TYESHA HORTA PHerbieAHerbie Encounter Diagnosis: Problem not documented On: 04-Oct-2016 14:00 Appointment; EMIGDIO MOCTEZUMA M.D. Encounter Diagnosis: Problem not documented On: 05-Oct-2016 14:30 Appointment; TYESHA HORTA, P.AHerbie Encounter Diagnosis: Problem not documented On: 22-Dec-2016 8:30 Appointment; TYESHA HORTA P.AHerbie Encounter Diagnosis: Problem not documented On: 12-Jan-2017 10:15 Appointment; TYESHA HORTA P.AHerbie Encounter Diagnosis: Problem not documented On: 01-Feb-2017 [...] not documented On: 18-Mar-2017 12:00 Appointment; PROSPER AMAYA M.D. Encounter Diagnosis: Problem not documented On: 06-Apr-2017 16:20 Appointment; NANETTESHORE-MS, ECHO Encounter Diagnosis: Problem not documented On: 08-Apr-2017 10:00 Appointment; PROSPER AMAYA M.D. Encounter Diagnosis: Problem not documented On: 08-Apr-2017 11:00 Appointment; KWAME NESS M.D. Encounter Diagnosis: Problem not documented On: 08-Apr-2017 15:00 Appointment; CORNELIO PASCUAL M.D. Encounter Diagnosis: Problem not documented On: 15-Apr-2017 14:00 Appointment; ELBA POPE P.A. Encounter Diagnosis: Problem not documented On: 14-May-2017 9:30 Appointment; TYESHA HORTA PZina Encounter Diagnosis: Problem not documented On: 30-May-2017 13:15 Appointment; TYESHA HORTA P.A. Encounter Diagnosis: Problem not documented On: 27-Jun-2017 9:00 Appointment; TYESHA HORTA P.A. Encounter Diagnosis: Problem not documented On: 26-Jul-2017 8:30 Appointment; ROSAMARIA PADILLA NP Encounter Diagnosis: Problem not documented On: 13-Sep-2017 16:00 Appointment; ELBA POPE P.A. Encounter Diagnosis: Problem not documented On: 17-Oct-2017 8:00 Appointment; BAYSHORE-MS, ECHO Encounter Diagnosis: Problem not documented On: 24-Oct-2017 10:00
[2018-06-13 08:30] VITALS: BP 134/88
--- NOTE | 2018-06-13 16:48 | Operative Report ---
DATE OF PROCEDURE: 06/13/2018 SURGEON: Deangelo Goldberg MD PREOPERATIVE DIAGNOSIS: Stenosing tenosynovitis of left long finger and left little finger. POSTOPERATIVE DIAGNOSIS: Stenosing tenosynovitis of left long finger and left little finger. OPERATION PERFORMED: Tenovaginotomy of left long finger and left little finger. ANESTHESIA: General. HISTORY: The patient is a 68-year-old hand-dominant, who presents with stenosing tenosynovitis of the left long finger and left little finger that is recalcitrant to conservative treatment. The risks, benefits, and alternatives of treatment were discussed with the patient and they are prepared to undergo the procedure as outlined. DESCRIPTION OF PROCEDURE: The patient was brought to the operating theater. After the induction of adequate general anesthesia, the patient was prepped and draped in a supine position. A time out was performed by the entire operating room team. An oblique incision was marked out over the A1 jessica of the left long finger and left little finger. The upper extremity was exsanguinated, and a tourniquet was inflated to a pressure of 250 mmHg. The incision was made through the skin and subcutaneous tissues. All venous tributaries were controlled with bipolar cautery. The incision was deepened through the palmar tissues. The neurovascular bundles on the radial and ulnar sides of the flexor tendon sheath were identified and retracted away from the flexor tendon sheath and preserved. The A1 jessica of the affected finger was identified and incised longitudinally, taking care to protect and preserve the flexor tendons within the sheath. After the complete length of the jessica had been transected, the tendons were placed in a range of motion. There was noted to be good motion without any locking. The wound was then copiously irrigated with bacteriostatic saline and closed with 5-0 nylon in an interrupted horizontal mattress fashion. A Marcaine field block was performed at the operative site. The tourniquet was deflated. All the fingers pinked up nicely. A sterile bulky conforming bandage was applied to the hand, and the patient was returned to the recovery room in satisfactory condition and was discharged with a postoperative instruction sheet as well as a followup appointment. Deangelo Goldberg MD ER/MODL /[id number]
== END | disposition home or self-care (01) ==
LOC: OR 05:30
PROVIDERS: ATTEND Plastic Surgery
DX: M65.332 Trigger finger, left middle finger (principal); M65.352 Trigger finger, left little finger; G47.33 Obstructive sleep apnea (adult) (pediatric); I10 Essential (primary) hypertension; K57.90 Diverticulosis of intestine, part unspecified, without perforation or abscess without bleeding; Z01.810 Encounter for preprocedural cardiovascular examination; Z01.812 Encounter for preprocedural laboratory examination; Z01.818 Encounter for other preprocedural examination; Z79.82 Long term (current) use of aspirin
CPT/HCPCS: 26055 ×2; 36415; 71046; 85025; 93005; J0690; J1100; J2001; J2250; J2405; J2704

== ENCOUNTER 2018-06-20 10:26 | Emergency (ER) | payer MEDICARE, OTHER ==
[~2018-06-20] VITALS: Ht 180.3 cm; Wt 98.9 kg
[~2018-06-20 10:26] MED LIST changes: -BUPIVACAINE HCL 0.5% INJ 30 ML VIAL INJ ONE; -CEFAZOLIN SOD 1 GM/NS 50ML 50 ML IV ONE; -DEXAMETHASONE SOD PHOS INJ 4 MG/ML VIAL ONE; -FENTANYL CITRATE/PF 100MCG/2 ML INJ ONE; -LIDOCAINE HCL 2% LOCAL INJ 5 ML SDV VIAL INJ ONE; -MIDAZOLAM HCL 2 MG/2 ML VIAL ONE; -MUPIROCIN 2% OINT 22 GM TUBE ONE; -ONDANSETRON HCL INJ 2MG/ML 2ML 2 MG/ML VIAL ONE; -PROPOFOL IV EMULSION 10 MG/ML 20 ML VIAL ONE; -SEVOFLURANE INHAL SOLN 250 ML PEN BTL ONE
--- NOTE | 2018-06-20 11:22 | NUR ---
MARY WOODARD I ROSALIOO CHEKO ANDREW.
[2018-06-20] MEDS ORDERED: DEXAMETHASONE SOD PHOS 10 MG/1 ML VIAL IM ONE (12:15)
[2018-06-20 12:50] VITALS: BP 140/90
== END 2018-06-20 13:00 | disposition home or self-care (01) ==
LOC: ER 10:26
DX: H92.01 Otalgia, right ear (principal); J02.0 Streptococcal pharyngitis; M26.621 Arthralgia of right temporomandibular joint; I10 Essential (primary) hypertension; H35.30 Unspecified macular degeneration; Z87.19 Personal history of other diseases of the digestive system
CPT/HCPCS: 99282; J1100